=== PATIENT | female | born 1980 | race Caucasian/White ===

== ENCOUNTER 2021-09-12 17:23 | Observation (INO) ==
[2021-09-12] MEDS ORDERED: Ketorolac 30 MG/ML VIAL IVP ONE (18:18)
[2021-09-12] MEDS ORDERED: Vancomycin 1,250 MG/262.5 ML IV.SOLN IVPB ONE (18:30)
[2021-09-12 19:09] LABS: Hematocrit 37.8 % (35.3-44.9); Hemoglobin 12.5 g/dL (11.5-15.4); Immature Granulocytes % 0.1 % (0-4); Lymphocytes % 37.9 %; Mean Corpuscular HGB Conc 33.1 g/dL (31.6-35.5); Mean Corpuscular Hemoglobin 29.9 pg (28.0-33.3); Mean Corpuscular Volume 90.4 fL (83.0-100.0); Mean Platelet Volume 10.8 fL (9.4-12.4); Monocytes % 4.6 %; Platelet Count 250 K/mcL (140-400); Red Blood Count 4.18 M/mcL (3.82-4.97); Segmented Neutrophils % 54.4 %
[2021-09-12 19:10] LABS: Basophils # 0.1 K/mcL (0.0-0.2); Basophils % 0.7 %; Eosinophils # 0.2 K/mcL (0.0-0.6); Eosinophils % 2.3 %; Lymphocytes # 2.7 K/mcL (0.6-4.6); Monocytes # 0.3 K/mcL (0.0-1.3); Neutrophils # 3.8 K/mcL (1.6-8.9)
[2021-09-12 19:18] LABS: INR 1.1; Prothrombin Time 12.3 Seconds (9.4-12.1)
[2021-09-12] MEDS ORDERED: Ondansetron 4 MG/2 ML VIAL IVP ONE (19:18)
[2021-09-12 19:20] LABS: Activated Partial Thrombo Time 39.2 Seconds (26.0-36.0)
[2021-09-12 19:30] LABS: Alanine Aminotransferase 10 Units/L (7-52); Albumin 4.1 g/dL (3.5-5.7); Albumin/Globulin Ratio 1.6 (1.1-2.2); Alkaline Phosphatase 67 Units/L (34-104); Aspartate Amino Transferase 14 Units/L (13-39); BUN/Creatinine Ratio 8 (6-26); Bilirubin,Total 0.3 mg/dL (0.3-1.0); Blood Urea Nitrogen 7 mg/dL (6-20); Calcium 9.2 mg/dL (8.6-10.3); Carbon Dioxide 24 mEq/L (23-29); Chloride 107 mEq/L (98-107); Globulin 2.5 g/dL (2.4-3.5); Glucose 101 mg/dL (70-105); Osmolality,Calculated 284 (280-300); Potassium 3.6 mEq/L (3.5-5.1); Sodium 138 mEq/L (136-145); Total Protein 6.6 g/dL (6.4-8.9); eGFR For African Americans > 60 (> 60); eGFR For Non-African Americans > 60 (> 60)
[2021-09-12] MEDS ORDERED: Ondansetron 4 MG/2 ML VIAL IVP PRN (21:47)
[2021-09-12] MEDS ORDERED: Naloxone 0.4 MG/ML INJ IVP PRN (21:47)
[2021-09-12] MEDS ORDERED: Melatonin 3 MG TABLET PO PRN (21:47)
[2021-09-12] MEDS ORDERED: *HR* Promethazine 25 MG/ML VIAL IM PRN (21:56)
[2021-09-12] MEDS ORDERED: 0.9 % Sodium Chloride 1,000 ML IVC SCH (22:00)
[2021-09-12 22:16] LABS: C-Reactive Protein 10 mg/L (Less than 10)
[2021-09-12] MEDS: Ketorolac 30 MG/ML VIAL IVP PRN (22:31)
[2021-09-13 05:49] LABS: Basophils % 0.5 %; Eosinophils # 0.2 K/mcL (0.0-0.6); Eosinophils % 3.2 %; Hematocrit 35.2 % (35.3-44.9); Hemoglobin 11.7 g/dL (11.5-15.4); Immature Granulocytes % 0.3 % (0-4); Lymphocytes # 2.4 K/mcL (0.6-4.6); Lymphocytes % 40.1 %; Mean Corpuscular HGB Conc 33.2 g/dL (31.6-35.5); Mean Corpuscular Hemoglobin 29.8 pg (28.0-33.3); Mean Corpuscular Volume 89.6 fL (83.0-100.0); Mean Platelet Volume 10.7 fL (9.4-12.4); Monocytes # 0.3 K/mcL (0.0-1.3); Monocytes % 5.8 %; Neutrophils # 2.9 K/mcL (1.6-8.9); Platelet Count 206 K/mcL (140-400); Red Blood Count 3.93 M/mcL (3.82-4.97); Red Cell Distribution Width 11.9 % (11.5-14.5); Segmented Neutrophils % 50.1 %; White Blood Count 5.9 K/mcL (4.3-11.1)
[2021-09-13 06:14] LABS: Alanine Aminotransferase 10 Units/L (7-52); Albumin 3.6 g/dL (3.5-5.7); Albumin/Globulin Ratio 1.7 (1.1-2.2); Alkaline Phosphatase 59 Units/L (34-104); Aspartate Amino Transferase 14 Units/L (13-39); BUN/Creatinine Ratio 14 (6-26); Bilirubin,Total 0.3 mg/dL (0.3-1.0); Blood Urea Nitrogen 10 mg/dL (6-20); Calcium 8.8 mg/dL (8.6-10.3); Carbon Dioxide 25 mEq/L (23-29); Chloride 108 mEq/L (98-107); Globulin 2.1 g/dL (2.4-3.5); Glucose 102 mg/dL (70-105); Magnesium 1.8 mg/dL (1.6-2.6); Osmolality,Calculated 287 (280-300); Phosphorous 3.4 mg/dL (2.7-4.5); Potassium 3.5 mEq/L (3.5-5.1); Sodium 139 mEq/L (136-145); Total Protein 5.7 g/dL (6.4-8.9); eGFR For African Americans > 60 (> 60); eGFR For Non-African Americans > 60 (> 60)
[2021-09-13] MEDS: Ketorolac 30 MG/ML VIAL IVP PRN ×4 (06:53→20:00)
[2021-09-13] MEDS ORDERED: Lidocaine/EPI 1:100k 1% 50 ML VIAL ONE (07:18)
[2021-09-13] MEDS ORDERED: Lidocaine -MPF 2% 2 ML VIAL ONE (07:31)
[2021-09-13] MEDS ORDERED: *HR* FentaNYL (PF) 100 MCG/2 ML VIAL ONE (07:31)
[2021-09-13] MEDS ORDERED: *HR* Midazolam HCl 2 MG/2 ML VIAL ONE (07:31)
[2021-09-13] MEDS ORDERED: *HR* Propofol 200 MG/20 ML VIAL IVP ONE (07:31)
[2021-09-13] MEDS ORDERED: Scopolamine Patch 1.5 MG PATCH.TD72 ONE (07:45)
[2021-09-13] MEDS ORDERED: Ondansetron 4 MG/2 ML VIAL ONE (07:56)
[2021-09-13] MEDS ORDERED: Vancomycin 1,250 MG/262.5 ML IV.SOLN IVPB SCH ×2 (08:00→20:00)
[2021-09-13] MEDS ORDERED: Ondansetron 4 MG/2 ML VIAL IVP PRN ×3 (08:11→09:57)
[2021-09-13] MEDS: *HR* HYDROmorphone PF 0.5 MG/0.5 ML SYRINGE IVP PRN ×2 (09:02→09:13)
[2021-09-13] MEDS ORDERED: *HR* Promethazine 25 MG/ML VIAL IM PRN (09:57)
[2021-09-13] MEDS ORDERED: *HR* HYDROmorphone PF 0.5 MG/0.5 ML SYRINGE IVP PRN (09:57)
[2021-09-13] MEDS ORDERED: Melatonin 3 MG TABLET PO PRN (09:57)
[2021-09-13] MEDS ORDERED: Naloxone 0.4 MG/ML INJ IVP PRN (09:57)
[2021-09-13] MEDS: Ondansetron 4 MG/2 ML VIAL IVP PRN ×2 (15:39→20:00)
[2021-09-13] MEDS: 0.9 % Sodium Chloride 1,000 ML IVC SCH (18:18)
[2021-09-13] MEDS ORDERED: *HR* LORazepam 2 MG/ML VIAL IVP ONE (19:14)
[2021-09-13 22:51] VITALS: O2SAT 96
[2021-09-14] MEDS: Ondansetron 4 MG/2 ML VIAL IVP PRN ×2 (00:46→08:57)
[2021-09-14] MEDS ORDERED: Morphine Sulfate 2 MG/ML SYRINGE IVP ONE (00:58)
[2021-09-14] MEDS ORDERED: Gabapentin 100 MG CAPSULE PO ONE (01:29)
[2021-09-14] MEDS: 0.9 % Sodium Chloride 1,000 ML IVC SCH (02:45)
[2021-09-14] MEDS: Ketorolac 30 MG/ML VIAL IVP PRN (08:58)
[2021-09-14] MEDS ORDERED: Vancomycin 1,250 MG/262.5 ML IV.SOLN IVPB SCH (09:00)
[2021-09-14] MEDS ORDERED: Ringers Solution, Lactated 1,000 ML IVC ONE (09:09)
[2021-09-14] MEDS ORDERED: Doxycycline 100 MG CAPSULE PO SCH (09:15)
[2021-09-14 11:36] VITALS: BP 98/56; PULSE 56; TEMP 97.8
== END 2021-09-14 13:19 | disposition home or self-care (01) ==
LOC: 4WAOSI 17:23 → EMEROOARM 17:23 → 4WAOSI 21:17
PROVIDERS: ADMIT Family Medicine; ATTEND Family Medicine